=== PATIENT | female | born 1975 | race Caucasian/White ===

== ENCOUNTER 2017-10-27 06:59 | Outpatient (RCR) | payer BC | END 2017-11-01 | LOC: PT 06:59 | PROVIDERS: ATTEND Neurological Surgery | DX: M51.17 Intervertebral disc disorders with radiculopathy, lumbosacral region (principal); M62.81 Muscle weakness (generalized) ==

== ENCOUNTER 2017-11-06 07:00 | Outpatient (RCR) | payer BC | END 2017-12-02 | LOC: PT 07:00 | PROVIDERS: ATTEND Neurological Surgery | DX: M51.17 Intervertebral disc disorders with radiculopathy, lumbosacral region (principal); M62.81 Muscle weakness (generalized) ==